=== PATIENT | male | born 1960 | race Caucasian/White ===

== ENCOUNTER 2016-05-11 10:52 | Emergency (ER) | payer OTHER, MEDICARE ==
[~2016-05-11] VITALS: Ht 182.9 cm; Wt 199.6 kg
--- NOTE | 2016-05-11 11:00 | ED CARDIAC/CP/PALPITATIONS ---
History of Present Illness General Chief Complaint: General Adult Stated Complaint: "I FELT LIKE I WAS GOING TO LASTNIGHT" -CP Vital Signs & Intake/Output Vital Signs & Intake/Output Vital Signs Date Time Temp Pulse Resp B/P Pulse O2 O2 Flow FiO2 Ox Delivery Rate 05/11 1058 97.4 77 22 161/94 96 Room Air Allergies Coded Allergies: No Known Allergies (05/11/16) Triage Note: PT STATES HE'S HAD A COLD AND USES A CPAP MACHINE. PT STATES LAST NIGHT HE EITHER STOPPED BREATHING OR HIS HOSE KINKED BECAUSE HE WOKE UP PANICKED AND UNABLE TO BREATHE. EPISODE LASTED A FEW MINUTES THEN HE RECOVERED Past History Travel History Traveled to [place] past 21 day No Medical History Cardiovascular: hypertension Musculoskeletal: ARTHRITIS Endocrine: GOUT Psychosocial History What is your primary language Russian Tobacco Use: Never used ETOH Use: denies use Illicit Drug Use: denies illicit drug use Departure Departure Condition: Stable Referrals: UNKNOWN Departure Forms: Customer Survey General Discharge Information
--- NOTE | 2016-05-11 12:34 | ED GENERAL ADULT ---
History of Present Illness General Chief Complaint: General Adult Stated Complaint: "I FELT LIKE I WAS GOING TO LASTNIGHT" - Source: patient Exam Limitations: no limitations Vital Signs & Intake/Output Vital Signs & Intake/Output Vital Signs Date Time Temp Pulse Resp B/P Pulse O2 O2 Flow FiO2 Ox Delivery Rate 05/11 1552 98.2 82 20 05/11 1530 Room Air 05/11 1400 78 148/80 05/11 1058 97.4 77 22 161/94 96 Room Air Allergies Coded Allergies: No Known Allergies (05/11/16) Triage Note: PT STATES HE'S HAD A COLD AND USES A CPAP MACHINE. PT STATES LAST NIGHT HE EITHER STOPPED BREATHING OR HIS HOSE KINKED BECAUSE HE WOKE UP PANICKED AND UNABLE TO BREATHE. EPISODE LASTED A FEW MINUTES THEN HE RECOVERED Triage Nurses Notes Reviewed? yes HPI: Pt is a 55 yo morbidly obese gentleman with a PMHx of HTN, sleep apnea on nocturnal BIPAP, presents to [place] ED with chief compliant " I woke up at 3 am because I could not breath". Patient states that he was awoken around 3 am and started gasping for air, and pulled off his CPAP immediately. Pt reports disorientation and confusion for about 30 seconds. he denies having had a similar episode before. Pt is unsure wether he had "kinked" the CPAP tube while he was asleep. Patient denies any LOC, neurological deficits, chest pain or palpitations, PND, or leg swelling. he reports that his CPAP settings have not been adjusted for a long time. While awake and ambulating, he denies any hypoxic or shortness of breath spells. Of note, pt has been sick for a week and was evaluated for strept throat at urgent care (rapid strep test was negative), he was given vigamox for conjuctivitis and Z-Alex (which he only took for 2 days). Pt states that he is now afraid to go to sleep and feels anxious and worried that he may not wake up. (GEOVANNY PEREZ,[facility]) Past History Travel History Traveled to [place] past 21 day No Medical History Any Pertinent Medical History? see below for history Cardiovascular: hypertension Musculoskeletal: ARTHRITIS Endocrine: GOUT Surgical History Surgical History: non-contributory Psychosocial History What is your primary language Brazilian Tobacco Use: Never used ETOH Use: denies use Illicit Drug Use: denies illicit drug use Family History Hx Contributory? No (GEOVANNY PEREZ,JAMILAH) Review of Systems Review of Systems Constitutional: Reports: see HPI. Respiratory: Reports: short of breath. Cardiovascular: Denies: chest pain, edema, orthopena, palpitations, peripheral edema, syncope. GI: Denies: constipation, diarrhea, distention. Genitourinary: Denies: dysuria, frequency, hematuria. Musculoskeletal: Denies: joint pain, joint swelling. Skin: Denies: change in hair/nails, erythema. Neurological/Psychological: Denies: confusion, depressed, dementia. Hematologic/Endocrine: Denies: bruising, bleeding, polyuria. (GEOVANNY PEREZ,JAMILAH) Physical Exam Physical Exam General Appearance: no apparent distress, alert, obese Head: atraumatic, normal appearance Ears, Nose, Throat: normal pharynx, normal ENT inspection Neck: normal inspection, supple, full range of motion Respiratory: normal breath sounds, chest non-tender, no respiratory distress, lungs clear Cardiovascular: regular rate/rhythm Gastrointestinal: normal bowel sounds, soft, non-tender Back: normal inspection Extremities: normal inspection, normal capillary refill, normal range of motion, no edema Neurologic/Psych: no motor/sensory deficits, awake, alert, oriented x 3, normal gait, normal mood/affect Skin: intact, normal color Lymphatic: no anterior cervical didi Core Measures ACS in differential dx? No CVA/TIA Diagnosis: No Severe Sepsis Present: No Septic Shock Present: No (GEOVANNY PEREZ,JAMILAH) Progress Differential Diagnoses I considered the following diagnoses in my evaluation of the patient: worsening sleep apnea, PNA, CHF, Acute bronchitis, ACS. Plan of Care: Orders Procedure Date/time Status XRY-CHEST XRAY, PA AND LATERAL 05/11 UNK Active CXR Impression: bibasilar atelectasis Initial ED EKG: none (GEOVANNY PEREZ,JAMILAH) Departure Departure Time of Disposition: 1530 Disposition: HOME OR SELF CARE Condition: Stable Clinical Impression Primary Impression: Apneic episode Ruled Out Impressions: Hypoxic episode Referrals: GUNNER CORDOVA MD (PCP/Family) Additional Instructions: Please seek immediate attention if you experience another episode of not being able to breath Please contact the CPAP company today for them to check your machine for any mulfunctioning, Please follow up with your PCP within 1 week and inform him about your emergency visit Departure Forms: Customer Survey General Discharge Information Comments Patient was offered to have one of our nursing staff go to his home for any mulfunctioning of his CPAP. He declined and stated that he will call his CPAP suppplying company and have them come to check the CPAP, (GEOVANNY PEREZ,JAMILAH) Resident Co-Sign Statement Statement: ED Attending supervision documentation- x I saw and evaluated the patient. I have also reviewed all the pertinent lab results and diagnostic results. I agree with the findings and the plan of care as documented in the Resident's documentation. [] I have reviewed the ED Record and agree with the Resident's documentation. [] Additions or exceptions (if any) to the Resident's note and plan are summarized below: [] (MARK EPREZ,SHANICE) Critical Care Note Critical Care Note Critical Care Time: non-applicable (GEOVANNY PEREZ,JAMILAH)
[2016-05-11 14:00] VITALS: BP 148/80
--- NOTE | 2016-05-11 15:18 | RADIOLOGY REPORT ---
EXAMINATION: XR CHEST CLINICAL INFORMATION: Hypoxic event. COMPARISON: None. TECHNIQUE: PA and lateral views of the chest were obtained. FINDINGS: The lungs are well expanded. Mild elevation of the right hemidiaphragm. Linear markings are seen at both lung bases most suggestive of atelectasis. No pleural effusion or pneumothorax. No dense consolidation. The cardiomediastinal silhouette is within normal limits. No acute osseous abnormality. IMPRESSION: Bibasilar linear atelectasis. No dense consolidation.
== END 2016-05-11 16:44 ==
LOC: ERH 10:52
DX: R06.81 Apnea, not elsewhere classified (principal); R09.02 Hypoxemia

== ENCOUNTER 2016-05-26 10:33 | Emergency (ER) | payer OTHER, MEDICARE ==
[~2016-05-26] VITALS: Ht 182.9 cm; Wt 199.6 kg
[2016-05-26 11:56] LABS: ABSOLUTE BASOPHIL COUNT 0 /CUMM (0.0-0.2); ABSOLUTE EOSINOPHIL COUNT 0 /CUMM (0.0-0.7); ABSOLUTE GRANULOCYTE CT 4.8 /CUMM (1.4-6.5); ABSOLUTE LYMPH COUNT 1.2 /CUMM (1.2-3.4); ABSOLUTE MONOCYTE COUNT 0.4 /CUMM (0.10-0.60); BASOPHIL % 0.7 % (0.0-2.0); EOSINOPHIL % 0.7 % (0-5); GRANULOCYTE % 73.8 % (42.2-75.2); HEMATOCRIT 46.5 % (42-52); MEAN CORPUSCULAR HGB 29.1 PG (27.0-31.0); MEAN CORPUSCULAR HGB CONC 34.2 G/DL (33.0-37.0); MEAN PLATELET VOLUME 8.2 FL (7.4-10.4); PLATELET COUNT 208 /CUMM (130-400); RBC DISTRIBUTION WIDTH 13.8 % (11.5-14.5); RED BLOOD CELL CT 5.47 /CUMM (4.70-6.10); WHITE BLOOD CELL COUNT 6.6 /CUMM (4.8-10.8)
--- NOTE | 2016-05-26 12:24 | ED DYSPNEA/ASTHMA COMPLAINT ---
History of Present Illness General Chief Complaint: Dyspnea (COPD, CHF, Other) Stated Complaint: SOB Source: patient, old records Exam Limitations: no limitations Allergies Coded Allergies: No Known Allergies (05/11/16) Triage Note: PT C/O FEELING SOB INCREASED WITH ACTIVITY FOR THE PAST COUPLE OF WEEKS BUT GOT WORSE TODAY. Triage Nurses Notes Reviewed? yes Onset: Abrupt Duration: week(s): (2), constant Timing: recent history Severity: moderate Activities at Onset: none, activity Prior Episodes/Possible Cause: no prior episodes Associated Symptoms: anxiety HPI: 55-year-old male with history of sleep apnea and hypertension who presents to emergency room same past 2 weeks he has had dyspnea while at rest and with exertion. Patient was on a 10 day course of Levaquin which she completed after he was diagnosed with bronchitis 2 weeks ago when the symptoms began. The patient was seen here around that time after he had a malfunction with his sleep apnea machine causing him to "choke" he states he was not breathing. She was seen here.. He states since then he has not been sleeping well, stating he has been nervous to go to sleep. The [employer] has come out in told him that there is nothing wrong with the machine and he is scheduled to have a sleep study performed here once again in 3 days. He is not currently on any antibiotics. He denies any leg swelling chest pain palpitations. He states that today however while in the car store he began to feel short of breath and felt lightheaded for which she went outside and felt better. There is no cough or hemoptysis note. Pain nausea vomiting or diarrhea (FREEMAN MIX,ISABELLA) Vital Signs & Intake/Output Vital Signs & Intake/Output Vital Signs Date Time Temp Pulse Resp B/P Pulse O2 O2 Flow FiO2 Ox Delivery Rate 05/26 1518 97.9 60 18 135/75 94 Room Air 05/26 1513 94 05/26 1337 94 Room Air Room Air 05/26 1336 68 126/61 05/26 1311 91 05/26 1045 96.4 60 18 138/84 95 Room Air Reconcile Medications Albuterol Sulfate (Proair Hfa) 90 MCG HFA.AER.AD 2 PUF INH Q4-6 PRN PRN DYSPNEA Allopurinol 300 MG TABLET 1 TAB PO DAILY GOUT (Reported) Alprazolam (Xanax) 1 MG TABLET 1 TAB PO BID PRN ANXIETY Amlodipine Besylate 10 MG TABLET 1 TAB PO DAILY HEART (Reported) Atenolol 50 MG TABLET 1 TAB PO DAILY HEART (Reported) Methylprednisolone. (Medrol) 4 MG TAB.DS.PK 1 DP PO AD REACTIVE AIRWAY 6 on day 1 then reduce by one tablet daily until gone (THERESA PEREZ,SURJIT) Past History Travel History Traveled to [place] past 21 day No Medical History Any Pertinent Medical History? see below for history Cardiovascular: hypertension Respiratory: SLEEP APNEA Musculoskeletal: ARTHRITIS Endocrine: GOUT Surgical History Surgical History: non-contributory Psychosocial History What is your primary language Wolof Tobacco Use: Never used ETOH Use: denies use Illicit Drug Use: denies illicit drug use Family History Hx Contributory? No (ISABELLA PETER) Review of Systems Review of Systems Constitutional: Reports: see HPI. All Other Systems: Reviewed and Negative Comments Review of systems: See HPI, All other systems negative. Constitutional, no chills no fever, no malaise HEENT: no sore throat no congestion, no ear pain Cardiovascular: No chest pain , no palpitation , no orthopnea no ankle swelling Skin, no jaundice no rashes, no change in skin Respiratory: dyspnea cough no sputum no hemoptysis GI: No nausea no vomiting, no diarrhea, : No dysuria Muscle skeletal: No joint pain, no back pain, no neck pain, Neurologic: No numbness , no headache Psych: No stress Heme/endocrine: No bruising no bleeding Immunology: No lymphadenopathy (ISABELLA PETER) Physical Exam Physical Exam General Appearance: well developed/nourished, alert, awake Respiratory: normal breath sounds, chest non-tender, no respiratory distress Comments: Well-developed well-nourished person in no acute distress HEENT: Normal EENT exam; PERRL, EOMI, \\ HEAD is atraumatic. moist mucous membranes. Neck: Supple, no lymphadenopathy, normal range of motion Back: Nontender, no CVA tenderness. Full range of motion Cardiovascular: Regular rate and rhythms no murmurs rubs Respiratory: Chest nontender.There were no bony deformities, no asymmetry. No respiratory distress. Patient speaking in full complete sentences. Breath sounds clear to auscultation bilaterally: NO W/R/R Abdomen: Soft, nontender nondistended, no appreciable organomegaly. Normal bowel sounds. No rebound/guarding, No ascites. Extremity: No edema, full range of motion of extremities, Neuro: Alert oriented x3, motor sensory normal. There were no obvious focal neurologic abnormalities. Skin: No appreciable rash on exposed skin, skin is warm and dry. Psych: Mood and affect is normal, memory and judgment is normal. Core Measures ACS in differential dx? Yes Severe Sepsis Present: No Septic Shock Present: No (ISABELLA PETER) Progress Differential Diagnosis: asthma, AMI, bronchitis, costochondritis, CHF, COPD, musculoskeletal pain, pericarditis, pulmonary embolism, pneumonia, pneumothorax, unstable angina Diagnostic Imaging: Viewed by Me: Radiology Read. Discussed w/RAD: Radiology Read. Radiology Impression: PATIENT: BHAVANA JOHNSON PRESENT AGE: 55 PATIENT ACCOUNT NO: [id number] : 62 LOCATION: [facility] ORDERING PHYSICIAN: ISABELLA MIX SERVICE DATE: 05/26/16-1247 EXAM TYPE: RAD - XRY-CHEST XRAY, PA AND LATERAL EXAMINATION: XR CHEST CLINICAL INFORMATION: Shortness of breath COMPARISON: 05/11/2016 TECHNIQUE: 2 views of the chest were obtained. FINDINGS: No acute pulmonary findings compared to the prior exam. There is linear opacity from discoid atelectasis or focal scar within the lingula. No pulmonary consolidation, edema or pleural effusion. Cardiac silhouette is normal in size. Again noted is mild elevation of the right diaphragm. There is skeletal hyperostosis with flowing anterior ligament ossification of the thoracic spine. IMPRESSION: No acute cardiopulmonary abnormalities compared to 05/11/2016. DICTATED BY: HUY OLGUIN MD DATE/TIME DICTATED:05/26/161324 [employer] EMPLOYEE:HELEN DATE/TIME TRANSCRIBED:1324 CONFIDENTIAL, DO NOT COPY WITHOUT APPROPRIATE AUTHORIZATION. < Electronically signed in Other Vendor System> SIGNED BY: HUY OLGUIN MD 05/26/16 1331 Initial ED EKG: NSR AT 60, NO ACUTEST SEG CHANGES (ISABELLA PETER) Plan of Care: Orders Procedure Date/time Status MISTAKE 05/26 1247 Active Add-on Test (ER Only) 05/26 1224 Active TROPONIN LEVEL 05/26 1150 Complete COMPREHENSIVE METABOLIC PANEL 05/26 1116 Complete CBC WITHOUT DIFFERENTIAL 05/26 1116 Complete EKG 05/26 1053 Active Laboratory Tests 05/26/16 1150: Anion Gap 9, Estimated GFR > 60, BUN/Creatinine Ratio 15.0, Glucose 103 H, Calcium 9.9, Total Bilirubin 0.9, AST 29, ALT 48, Alkaline Phosphatase 72, Troponin I < 0.01, Total Protein 7.4, Albumin 4.0, Globulin 3.4, Albumin/ Globulin Ratio 1.2, CBC w Diff NO MAN DIFF REQ, RBC 5.47, MCV 85.0, MCH 29.1, RDW 13.8, MPV 8.2, Gran % 73.8, Lymphocytes % 18.1 L, Monocytes % 6.7, Eosinophils % 0.7, Basophils % 0.7, Absolute Granulocytes 4.8, Absolute Lymphocytes 1.2, Absolute Monocytes 0.4, Absolute Eosinophils 0, Absolute Basophils 0, PUBS MCHC 34.2 Labs ordered old records. Patient speaking in full complete sentences at this time Ke ordered prednisone 60 mg by mouth ordered I discussed with the patient at length all of his lab results and x-ray findings. Prescription for prednisone was provided. When I was informing the patient that there is nothing discharged on he stated "can I stay here a little bit longer" when questioned why He that he feels better in regards to his breathing he feels more relaxed here and at home when he is by himself. I discussed with the patient his symptoms and again stressed at length all of his lab results. The patient was ambulatory around the ER with oxygen saturations 94-95%, orthostatics are negative discussed with him need for close follow-up with his primary care physician and had a long discussion with the patient regarding anxiety. He states he's been prescribed medication the past however does not like to take it the patient is in agreement and will take Benadryl at this time. We will continue to monitor case d/w dr saavedra 05/26/2016 3:32:21 PM discussed with the patient again he states that Benadryl has helped him relax patient remains 97% on room air advise close follow-up with his primary care physician he feels comfortable at this time with going home ambulatory with steady gait (ISABELLA PETER) Departure Departure Time of Disposition: 1529 Disposition: HOME OR SELF CARE Condition: Stable Clinical Impression Primary Impression: Reactive airway disease Referrals: GUNNER CORDOVA MD (PCP/Family) Additional Instructions: Follow-up with your primary care physician this week. medrol dose pack as directed, albuterol inhaler as discussed these prescriptions were sent your pharmacy. Take benadryl if needed to help you sleep Departure Forms: Customer Survey General Discharge Information Prescriptions: Current Visit Scripts Methylprednisolone. (Medrol) 1 DP PO AD #1 DP 6 on day 1 then reduce by one tablet daily until gone Albuterol Sulfate (Proair Hfa) 2 PUF INH Q4-6 PRN PRN DYSPNEA #1 INHAL (ISABELLA PETER) PA/STORE STOCK HELP Co-Sign Statement Statement: ED Attending supervision documentation- [] I saw and evaluated the patient. I have also reviewed all the pertinent lab results and diagnostic results. I agree with the findings and the plan of care as documented in the PA's/STORE STOCK HELP's documentation. [X] I have reviewed the ED Record and agree with the PA's/STORE STOCK HELP's documentation. [] Additions or exceptions (if any) to the PAs/STORE STOCK HELP's note and plan are summarized below: [] (THERESA PEREZ,SURJIT) Critical Care Note Critical Care Note Critical Care Time: non-applicable (ISABELLA PETER)
--- NOTE | 2016-05-26 13:31 | RADIOLOGY REPORT ---
EXAMINATION: XR CHEST CLINICAL INFORMATION: Shortness of breath COMPARISON: 05/11/2016 TECHNIQUE: 2 views of the chest were obtained. FINDINGS: No acute pulmonary findings compared to the prior exam. There is linear opacity from discoid atelectasis or focal scar within the lingula. No pulmonary consolidation, edema or pleural effusion. Cardiac silhouette is normal in size. Again noted is mild elevation of the right diaphragm. There is skeletal hyperostosis with flowing anterior ligament ossification of the thoracic spine. IMPRESSION: No acute cardiopulmonary abnormalities compared to 05/11/2016.
[2016-05-26] MEDS ORDERED: ALLOPURINOL300 M1 PO (14:00)
[2016-05-26] MEDS ORDERED: ATENOLOL50 M1 PO (14:00)
[2016-05-26] MEDS ORDERED: AMLODIPINE BESY10 M1 PO (14:01)
[2016-05-26 15:18] VITALS: BP 135/75
[2016-05-26] MEDS ORDERED: MEDROL4 M2 PO (15:30)
[2016-05-26] MEDS ORDERED: PROAIR HFA8.5 GM INH (15:30)
[2016-05-27] MEDS ORDERED: XANAX1 M1 PO (16:13)
== END 2016-05-26 15:42 ==
LOC: ERH 10:33
PROVIDERS: Emergency Medicine
DX: J45.909 Unspecified asthma, uncomplicated (principal); I10 Essential (primary) hypertension
CPT/HCPCS: 1263; 93005; 93010

== ENCOUNTER 2016-05-27 09:05 | Emergency (ER) | payer OTHER, MEDICARE ==
[~2016-05-27] VITALS: Ht 172.7 cm; Wt 181.4 kg
[~2016-05-27 09:05] MED LIST: ALLOPURINOL300 M1 PO; AMLODIPINE BESY10 M1 PO; ATENOLOL50 M1 PO; MEDROL4 M2 PO; PROAIR HFA8.5 GM INH
--- NOTE | 2016-05-27 09:32 | ED DYSPNEA/ASTHMA COMPLAINT ---
History of Present Illness General Chief Complaint: General Adult Stated Complaint: ANXIETY Source: patient, old records Exam Limitations: no limitations Vital Signs & Intake/Output Vital Signs & Intake/Output Vital Signs Date Time Temp Pulse Resp B/P Pulse O2 O2 Flow FiO2 Ox Delivery Rate 05/27 1655 96.4 78 20 141/81 93 Room Air 05/27 1538 97.0 77 20 134/75 94 Nasal 2.0L Cannula 05/27 1420 74 94 05/27 1326 65 18 153/84 92 05/27 1222 96.0 64 18 140/76 95 Room Air 05/27 0923 98.3 73 18 139/90 100 Room Air 05/27 916 96.7 73 14 99 Room Air 05/27 915 99 Room Air Allergies Coded Allergies: No Known Allergies (05/11/16) Reconcile Medications Albuterol Sulfate (Proair Hfa) 90 MCG HFA.AER.AD 2 PUF INH Q4-6 PRN PRN DYSPNEA Allopurinol 300 MG TABLET 1 TAB PO DAILY GOUT (Reported) Alprazolam (Xanax) 1 MG TABLET 1 TAB PO BID PRN ANXIETY Amlodipine Besylate 10 MG TABLET 1 TAB PO DAILY HEART (Reported) Atenolol 50 MG TABLET 1 TAB PO DAILY HEART (Reported) Methylprednisolone. (Medrol) 4 MG TAB.DS.PK 1 DP PO AD REACTIVE AIRWAY 6 on day 1 then reduce by one tablet daily until gone Triage Note: PT TO ED AFTER WAKING UP "WITH ANXIETY AND I TOOK MY CPAP OFF AND THEN I GOT OCD AND JUST GOT SO NERVOUS I FEEL SO MUCH SAFER HERE THAN HOME, I GET SO ANXIOUS THAT I MIGHT NEED HELP AT HOME." NO SOB CURRENTLY, 02 SAT 99% ON RA, SPEAKING IN LONG, FULL SENTENCES, STATING HE IS FEELING MUCH BETTER NOW THAT HE IS IN THE ER. Triage Nurses Notes Reviewed? yes Onset: Abrupt Duration: week(s): (2), intermittent, waxing and waning Timing: recent history Severity: moderate Activities at Onset: sleep Prior Episodes/Possible Cause: frequent episodes Associated Symptoms: anxiety HPI: 55-year-old male with history of hypertension sleep apnea and gout who presents to emergency room for evaluation after being seen here yesterday for similar complaints. The patient states that he was feeling better after being discharged yesterday however again last night he attempted to use his CPAP he began to feel short of breath anxious and was unable to sleep all night. The patient states that he is feeling more anxious this morning and attempted to drive here in the snow however was unable to recall the ambulance as he was feeling short of breath. He states his symptoms improved upon EMS arrival, and since being here in the emergency room his symptoms have resolved. The patient denies any associated chest pain. There is no cough fever chills. He denies any leg swelling of abdominal pain nausea vomiting or diarrhea. The only modifying factor that makes it worse is the thought of using his CPAP machine, there are no associated symptoms (ISABELLA PETER) Past History Travel History Traveled to [place] past 21 day No Medical History Any Pertinent Medical History? see below for history Cardiovascular: hypertension Respiratory: SLEEP APNEA Musculoskeletal: ARTHRITIS Psychiatric: anxiety Endocrine: GOUT Surgical History Surgical History: non-contributory Psychosocial History What is your primary language Spanish Tobacco Use: Never used ETOH Use: denies use Illicit Drug Use: denies illicit drug use Family History Hx Contributory? No (ISABELLA PETER) Review of Systems Review of Systems Constitutional: Reports: see HPI. All Other Systems: Reviewed and Negative Comments Review of systems: See HPI, All other systems negative. Constitutional, no chills no fever, no malaise HEENT: no sore throat no congestion, no ear pain Cardiovascular: No chest pain , no palpitation , no orthopnea no ankle swelling Skin, no jaundice no rashes, no change in skin Respiratory: dyspnea cough no sputum no hemoptysis GI: No nausea no vomiting, no diarrhea, : No dysuria Muscle skeletal: No joint pain, no back pain, no neck pain, Neurologic: No numbness , no headache Psych: (+) Stress, anxiety Heme/endocrine: No bruising no bleeding Immunology: No lymphadenopathy (ISABELLA PETER) Physical Exam Physical Exam General Appearance: well developed/nourished, no apparent distress, alert, awake , anxious Respiratory: normal breath sounds, chest non-tender, no respiratory distress Comments: Well-developed well-nourished person in no acute distress HEENT: Normal EENT exam; PERRL, EOMI, \\ HEAD is atraumatic. moist mucous membranes. Neck: Supple, no lymphadenopathy, normal range of motion Back: Nontender, no CVA tenderness. Full range of motion Cardiovascular: Regular rate and rhythms no murmurs rubs Respiratory: Chest nontender.There were no bony deformities, no asymmetry. No respiratory distress. Patient speaking in full complete sentences. Breath sounds clear to auscultation bilaterally: NO W/R/R Abdomen: Soft, nontender nondistended, no appreciable organomegaly. Normal bowel sounds. No rebound/guarding, No ascites. Extremity: No edema, full range of motion of extremities, Neuro: Alert oriented x3, motor sensory normal. There were no obvious focal neurologic abnormalities. Skin: No appreciable rash on exposed skin, skin is warm and dry. Psych: Mood and affect is normal, memory and judgment is normal. Core Measures ACS in differential dx? Yes Severe Sepsis Present: No Septic Shock Present: No (FREEMAN MIX,ISABELLA) Progress Differential Diagnosis: AMI, bronchitis, costochondritis, CHF, musculoskeletal pain, pericarditis, pulmonary embolism, pneumonia, pneumothorax, unstable angina , anxiety Plan of Care: Orders Procedure Date/time Status Regular Diet 05/27 L Active CONTIN. POSITIVE AIRWAY PRESS 05/27 1424 Active Telemetry/Donor Floor Technician 05/27 918 Active case d/w dr cruz who evaluted the pt with myself and agrees with plan we had a long discussion with the patient, he reports since the ambulance picked him up his symptoms have been improving, on arrival here pt reports symptms have improved. pt had an extensive work up yesterday in this ER yesterday. I discussed with the patient at length that I believe his symptoms are secondary to his anxiety and there is a component of PTSD from the episode he had on May 07 as he states that he did not have any similar episodes or symptoms prior to that episode at that time. The patient is in agreement and we will give him Xanax 2 mg by mouth. He is declining any IV medication. We'll continue to monitor him on the quality assurance monitor chassis, and if the patient wishes to sleep we will get a CPAP machine to reassure the patient that he will be okay area the patient denies any pain, his vitals are within normal limits and do not believe repeat blood work or x-ray is warranted at this time which both patient and Dr. cruz are in agreement with 05/27/2016 10:45:33 AM on repeat evaluation patient states that the Ativan has helped is resting comfortably at this time in no apparent distress he denies any shortness of breath or chest pain. 05/27/2016 12:23:47 PM patient is resting comfortably eating lunch she denies any shortness of breath chest pain he is been ambulatory around ER with steady gait he feels improved with the Ativan 05/27/2016 4:46:17 PM patient was able to use the CPAP machine here and although he did not sleep he states that he was breathing comfortably without acute anxiety feeling better. He feels safe and comfortable with going home. A prescription for Xanax was called into his pharmacy advised to call his primary care physician tomorrow for follow-up evaluation. Advised to return anytime sooner with any concerns answered all his questions he feels comfortable displaying cleared for discharge (ISABELLA PETER) Initial ED EKG: none (ISABELLA PETER) Departure Departure Time of Disposition: 1611 Disposition: HOME OR SELF CARE Condition: Stable Clinical Impression Primary Impression: Anxiety Referrals: GUNNER CORDOVA MD (PCP/Family) Additional Instructions: Follow-up for your sleep study as scheduled. Continue taking the Medrol Dosepak. Xanax as directed at nighttime Departure Forms: Customer Survey General Discharge Information Prescriptions: Current Visit Scripts Alprazolam (Xanax) 1 TAB PO BID PRN ANXIETY #12 TAB (ISABELLA PETER) PA/APICULTURIST Co-Sign Statement Statement: ED Attending supervision documentation- [X] I saw and evaluated the patient. I have also reviewed all the pertinent lab results and diagnostic results. I agree with the findings and the plan of care as documented in the PA's/APICULTURIST's documentation. [] I have reviewed the ED Record and agree with the PA's/APICULTURIST's documentation. [] Additions or exceptions (if any) to the PAs/APICULTURIST's note and plan are summarized below: [] (CARISSA CRUZ DO) Critical Care Note Critical Care Note Critical Care Time: non-applicable (ISABELLA PETER)
[2016-05-27] MEDS ORDERED: XANAX1 M1 PO (16:13)
[2016-05-27 16:55] VITALS: BP 141/81
== END 2016-05-27 17:00 ==
LOC: ERH 09:05
DX: F41.9 Anxiety disorder, unspecified (principal); G47.33 Obstructive sleep apnea (adult) (pediatric)
CPT/HCPCS: 1288; 96374

== ENCOUNTER 2016-05-28 11:24 | Emergency (ER) | payer OTHER, MEDICARE ==
[~2016-05-28] VITALS: Ht 182.9 cm; Wt 199.6 kg
[~2016-05-28 11:24] MED LIST changes: +XANAX1 M1 PO
[2016-05-28 11:52] VITALS: BP 149/82
--- NOTE | 2016-05-28 11:58 | ED PSYCHIATRIC COMPLAINT ---
History of Present Illness General Chief Complaint: Psychiatric Related Complaint Stated Complaint: "fear of being alone" WANTS TO SPEAK WITH CRISIS Source: patient Exam Limitations: no limitations Vital Signs & Intake/Output Vital Signs & Intake/Output Vital Signs Date Time Temp Pulse Resp B/P Pulse O2 O2 Flow FiO2 Ox Delivery Rate 05/28 1152 96.7 64 20 149/82 94 Room Air Allergies Coded Allergies: No Known Allergies (05/11/16) Reconcile Medications Albuterol Sulfate (Proair Hfa) 90 MCG HFA.AER.AD 2 PUF INH Q4-6 PRN PRN DYSPNEA Allopurinol 300 MG TABLET 1 TAB PO DAILY GOUT (Reported) Alprazolam (Xanax) 1 MG TABLET 1 TAB PO BID PRN ANXIETY Amlodipine Besylate 10 MG TABLET 1 TAB PO DAILY HEART (Reported) Atenolol 50 MG TABLET 1 TAB PO DAILY HEART (Reported) Methylprednisolone. (Medrol) 4 MG TAB.DS.PK 1 DP PO AD REACTIVE AIRWAY 6 on day 1 then reduce by one tablet daily until gone Triage Note: C/O FEELING ANXIOUS, DOES NOT WANT TO BE ALONE. STATES HE HAS HAD DIFFICULTY SLEEPING X 3 WEEKS, AFTER GETTING THE FLU. SEEN HERE YESTERDAY FOR SOB SXS. USES C-PAP AT NIGHT. DENIES SI OR HI. Triage Nurses Notes Reviewed? yes HPI: This patient is a 55-year-old male who presented to the emergency department today for chief complaint of, "I don't like being alone." The patient is requesting a crisis consultation. He reported that he was seen here in the emergency department twice this month for shortness of breath, and once for anxiety. He reported that the prednisone that he was prescribed helping his shortness of breath. However, he reported that he was told that he came to the emergency department he would be able to speak to a counselor. The patient denied any SI or HI. No audio or visual hallucinations. He denied any alcohol or illicit drug use. (VERITO COLBERT PA-C) Past History Travel History Traveled to [place] past 21 day No Medical History Any Pertinent Medical History? see below for history Cardiovascular: hypertension Respiratory: SLEEP APNEA Musculoskeletal: ARTHRITIS Psychiatric: anxiety Endocrine: GOUT Surgical History Surgical History: non-contributory Psychosocial History What is your primary language French Tobacco Use: Never used ETOH Use: denies use Family History Hx Contributory? No (VERITO COLBERT PA-C) Review of Systems Review of Systems Constitutional: Reports: no symptoms. EENTM: Reports: no symptoms. Respiratory: Reports: no symptoms. Cardiovascular: Reports: no symptoms. GI: Reports: no symptoms. Musculoskeletal: Reports: no symptoms. Skin: Reports: no symptoms. Neurological/Psychological: Reports: see HPI. All Other Systems: Reviewed and Negative (VERITO COLBERT PA-C) Physical Exam Physical Exam General Appearance: well developed/nourished, no apparent distress, alert, awake Neurological/Psychiatric: no motor/sensory deficits, awake, alert, normal mood/ affect, calm, evening anchor II-XII nml as tested, oriented x 3 Comments: Well-developed well-nourished person in no acute distress HEENT: Normal EENT exam, head normocephalic, moist mucous membranes Nose is atraumatic Neck: Supple Back: Normal gait Respiratory: No respiratory distress. Speaking in full sentences Extremity: Normal and equal pulses Neuro: Alert oriented x3, motor sensory normal, cranial nerves II through XII grossly intact. Skin: No appreciable rash on exposed skin, skin is warm and dry. Psych: Mood and affect is normal, memory and judgment is normal. SAD PERSONS Done? patient not suicidal (VERITO COLBERT PA-C) Progress Differential Diagnosis: drug intoxication, drug overdose, drug withdrawal, ALCOHOL INTOXICATION, GENERALIZED ANXIETY DISORDER, MAJOR DEPRESSIVE DISORDER Plan of Care: Orders Procedure Date/time Status URINE DRUGS OF ABUSE 05/28 1155 Active ETHANOL 05/28 1155 Active COMPREHENSIVE METABOLIC PANEL 05/28 1155 Active CBC WITHOUT DIFFERENTIAL 05/28 1155 Active Comments: 05/28/2016 12:25:22 PM: When I discussed with this patient the process of obtaining blood work and a urine sample before he can see the crisis counselor, the patient reported that he would prefer to do this as an outpatient. I explained to the patient that if he would like he can stay in his regular clothes about being changed as long as he is not suicidal or homicidal. He is adamantly denying any SI or HI. The patient reported that he would feel more comfortable to be seen as an outpatient and set up as an inpatient. He reported , "I get the results of the process would be different." He was given outpatient resources upon discharge. (VERITO COLBERT PA-C) Departure Departure Disposition: HOME OR SELF CARE Condition: Stable Clinical Impression Primary Impression: Anxiety Referrals: GUNNER CORDOVA MD (PCP/Family) Additional Instructions: Please follow-up with the outpatient resources provided to you. Return for any worsening symptoms or concerns. Departure Forms: Customer Survey General Discharge Information (SAYRA INFANTE,VERITO) PA/PIZZA COOK Co-Sign Statement Statement: ED Attending supervision documentation- [] I saw and evaluated the patient. I have also reviewed all the pertinent lab results and diagnostic results. I agree with the findings and the plan of care as documented in the PA's/PIZZA COOK's documentation. [X] I have reviewed the ED Record and agree with the PA's/PIZZA COOK's documentation. [] Additions or exceptions (if any) to the PAs/PIZZA COOK's note and plan are summarized below: [] (THERESA PEREZ,SURJIT)
== END 2016-05-28 12:10 ==
LOC: ERH 11:24
DX: F41.9 Anxiety disorder, unspecified (principal)
CPT/HCPCS: 80307; G0480

== ENCOUNTER 2016-06-29 04:49 | Emergency (ER) | payer OTHER, MEDICARE ==
[~2016-06-29] VITALS: Ht 182.9 cm; Wt 195.5 kg
--- NOTE | 2016-06-29 05:02 | ED GENERAL ADULT ---
History of Present Illness General Chief Complaint: General Adult Stated Complaint: BIBA FOR SOB, DIZZINESS Source: patient, EMS Exam Limitations: no limitations Allergies Coded Allergies: No Known Allergies (05/11/16) Reconcile Medications Albuterol Sulfate (Proair Hfa) 90 MCG HFA.AER.AD 2 PUF INH Q4-6 PRN PRN DYSPNEA Allopurinol 300 MG TABLET 1 TAB PO DAILY GOUT (Reported) Alprazolam (Xanax) 1 MG TABLET 1 TAB PO BID PRN ANXIETY Amlodipine Besylate 10 MG TABLET 1 TAB PO DAILY HEART (Reported) Atenolol 50 MG TABLET 1 TAB PO DAILY HEART (Reported) Methylprednisolone. (Medrol) 4 MG TAB.DS.PK 1 DP PO AD REACTIVE AIRWAY 6 on day 1 then reduce by one tablet daily until gone Triage Note: 55YO MALE TO RM 9 VIA AMB FROM HOME W/CO FEELING SOB AND DIZZY TONITE. STATES HE "GOT CALLED INTO WORK EARLY DUE TO SNOWY WEATHER AND JUST DIDN'T FEEL WELL, SO I WENT HOME AND FELT DIZZY AND SOB." RA SAT ON ARRIVAL = 94 Triage Nurses Notes Reviewed? yes HPI: SOB AT WORK A FEW HOURS AGO, LEFT WORK WENT HOME AND STARTED FEELING DIZZY, LIGHTHEADED SENSATION CHEST HEAVINESS BUT NO PAIN NO DIAPHORESIS ECHO 5 WEEKS AGO WNL RECENT SLEEP STUDY NOW ON BIPAP (THERESA PEREZ,SURJIT) Vital Signs & Intake/Output Vital Signs & Intake/Output ED Intake and Output / 0000 03 1200 Intake Total Output Total Balance Patient 431 lb Weight Past History Travel History Traveled to [place] past 21 day No Medical History Any Pertinent Medical History? see below for history Cardiovascular: hypertension Respiratory: SLEEP APNEA Musculoskeletal: ARTHRITIS Psychiatric: anxiety Endocrine: GOUT Surgical History Surgical History: none Psychosocial History What is your primary language Yoruba Tobacco Use: Never used ETOH Use: occasional use Family History Hx Contributory? No (THERESA PEREZ,SURJIT) Review of Systems Review of Systems Constitutional: Denies: chills, fever. EENTM: Reports: no symptoms. Respiratory: Reports: short of breath. Denies: hemoptysis, sputum production. Cardiovascular: Denies: chest pain, palpitations, peripheral edema, syncope. GI: Denies: abdominal pain, nausea, vomiting. Genitourinary: Reports: no symptoms. Musculoskeletal: Reports: no symptoms. Skin: Reports: no symptoms. Neurological/Psychological: Reports: see HPI (DIZZY). Hematologic/Endocrine: Reports: no symptoms. Immunologic/Allergic: Reports: no symptoms. All Other Systems: Reviewed and Negative (THERESA PEREZ,SURJIT) Physical Exam Physical Exam General Appearance: well developed/nourished, alert, awake, anxious, mild distress, obese Head: atraumatic, normal appearance Eyes: Bilateral: normal appearance, PERRL, EOMI. Ears, Nose, Throat: normal pharynx, normal ENT inspection Neck: normal inspection, supple, full range of motion, no midline tenderness Respiratory: normal breath sounds, chest non-tender, no respiratory distress, quiet respiration, lungs clear Cardiovascular: regular rate/rhythm, normal peripheral pulses, norml femoral pulses equa Peripheral Pulses: 4+ carotid (R), 4+ carotid (L) Gastrointestinal: normal bowel sounds, soft, non-tender, no organomegaly Back: normal inspection, normal range of motion Extremities: normal inspection, normal capillary refill, normal range of motion, no edema Neurologic/Psych: no motor/sensory deficits, awake, alert, oriented x 3, normal gait, normal mood/affect Reflexes: 2+: bicep (R), bicep (L). Skin: intact, normal color, warm/dry Lymphatic: no anterior cervical didi Core Measures ACS in differential dx? Yes CVA/TIA Diagnosis: No Severe Sepsis Present: No Septic Shock Present: No (MARK PEREZ,SHANICE) Progress Differential Diagnoses I considered the following diagnoses in my evaluation of the patient: [ROSCOE, DEHYDRATION, ORTHOSTASIS, ACS, AMI, ANXIETY, PULMONARY EMBOLISM, ANEMIA] Plan of Care: Orders Procedure Date/time Status Heart Healthy Diet 06/29 L Active TROPONIN LEVEL 06/29 0900 Complete EKG 06/29 0900 Active MISTAKE 06/29 0508 Active TROPONIN LEVEL 06/29 0508 Complete COMPREHENSIVE METABOLIC PANEL 06/29 0508 Complete CBC WITHOUT DIFFERENTIAL 06/29 0508 Complete EKG 06/29 0500 Active Laboratory Tests 06/29/16 0906: Troponin I < 0.01 06/29/16 0523: Anion Gap 11, Estimated GFR > 60, BUN/Creatinine Ratio 20.0, Glucose 98, Calcium 10.1, Total Bilirubin 0.9, AST 29, ALT 37, Alkaline Phosphatase 70, Troponin I < 0.01, Total Protein 6.7, Albumin 3.9, Globulin 2.8, Albumin/Globulin Ratio 1.4, CBC w Diff NO MAN DIFF REQ, RBC 4.98, MCV 87.7, MCH 28.9, RDW 14.3, MPV 7.9, Gran % 70.8, Lymphocytes % 19.4 L, Monocytes % 8.0, Eosinophils % 1.5, Basophils % 0.3, Absolute Granulocytes 4.6, Absolute Lymphocytes 1.3, Absolute Monocytes 0.5, Absolute Eosinophils 0.1, Absolute Basophils 0, PUBS MCHC 33.0 Initial ED EKG: SINUS AGUS @ 51 BPM LAD Hand-Off Endorsed To: SHANICE FLORES MD Endorsed Time: 0700 Pending: EKG, labs (TROPONIN (9AM)) (SURJIT CARDENAS MD) Repeat EKG: unchanged Rhythm Strip: normal sinus rhythm Comments: Diagnostics reviewed patient examined and updated. D/W surgery. (SHANICE FLORES MD) Departure Departure Condition: Stable Referrals: GUNNER CORDOVA MD (PCP/Family) PA/REVIEWER SALES Co-Sign Statement Statement: ED Attending supervision documentation- [] I saw and evaluated the patient. I have also reviewed all the pertinent lab results and diagnostic results. I agree with the findings and the plan of care as documented in the PA's/REVIEWER SALES's documentation. [X] I have reviewed the ED Record and agree with the PA's/REVIEWER SALES's documentation. [] Additions or exceptions (if any) to the PAs/REVIEWER SALES's note and plan are summarized below: [] (SURJIT CARDENAS MD) Departure Time of Disposition: 1009 Disposition: STILL A PATIENT Clinical Impression Primary Impression: Dizziness Secondary Impressions: Chest heaviness Departure Forms: Customer Survey General Discharge Information RELEASE- WORK (SHANICE FLORES MD) Critical Care Note Critical Care Note Critical Care Time: non-applicable (SHANICE FLORES MD)
[2016-06-29 05:32] LABS: ABSOLUTE BASOPHIL COUNT 0 /CUMM (0.0-0.2); ABSOLUTE EOSINOPHIL COUNT 0.1 /CUMM (0.0-0.7); ABSOLUTE GRANULOCYTE CT 4.6 /CUMM (1.4-6.5); ABSOLUTE LYMPH COUNT 1.3 /CUMM (1.2-3.4); ABSOLUTE MONOCYTE COUNT 0.5 /CUMM (0.10-0.60); BASOPHIL % 0.3 % (0.0-2.0); EOSINOPHIL % 1.5 % (0-5); GRANULOCYTE % 70.8 % (42.2-75.2); HEMATOCRIT 43.6 % (42-52); MEAN CORPUSCULAR HGB 28.9 PG (27.0-31.0); MEAN CORPUSCULAR VOLUME 87.7 FL (80.0-94.0); MEAN PLATELET VOLUME 7.9 FL (7.4-10.4); PLATELET COUNT 189 /CUMM (130-400); RBC DISTRIBUTION WIDTH 14.3 % (11.5-14.5); RED BLOOD CELL CT 4.98 /CUMM (4.70-6.10); WHITE BLOOD CELL COUNT 6.5 /CUMM (4.8-10.8)
[2016-06-29 11:04] VITALS: BP 153/77
== END 2016-06-29 11:25 ==
LOC: ERH 04:49
PROVIDERS: Emergency Medicine
DX: R42 Dizziness and giddiness (principal)
CPT/HCPCS: 93005; 93010